=== PATIENT | male | born 1980 | race Caucasian/White ===

== ENCOUNTER 2018-12-31 03:59 | Emergency (ER) | payer SELFPAY ==
[2018-12-31 04:00] VITALS: BP 133/86; PULSE 82; RESP 16; TEMP 36.5; O2SAT 95; BMI 36.8
--- NOTE | 2018-12-31 04:49 | ED.VISSUMM ---
- ER Visit Summary Date of Service: 12/31/18 Chief Complaint: Altered level of consciousness History of Present Illness: The patient is a 38 M who is brought in by EMS. EMS states that they were called by a neighbor in an apartment complex and stated that the patient seemed confused. When I arrived the patient was in a hallway-like area and would speak minimally. They noted that he would stumble and appeared intoxicated. They got him back inside his apartment there was a lot of empty beer cans. The patient appeared to intoxicated to leave by himself. No reports of trauma. Physical Examination: Afebrile vital signs are stable Gen: Well-nourished well-developed Head: Normocephalic atraumatic Eyes: Perrl EOMI ENT: TMs clear no rhinorrhea moist mucous membranes mild of alcohol Neck: Supple no lymphadenopathy no JVD nontender CVS: Regular rate rhythm no murmurs normal S1-S2 Respiratory: No distress clear to auscultation bilaterally chest nontender Abdomen: Soft nontender nondistended normal bowel sounds no masses Back: Nontender Extremity: Nontender no edema Skin: Normal color no rash Neuro: Patient appears stuporous and intoxicated patient moves all 4 extremities. Patient is able to get to the bathroom though patient stumbles while walking. Patient states that he is to foot 3 inches tall. Psych: Normal affect normal mood Test Results: Alcohol level is 330. Emergency Department Course and Treatment: Given the high alcohol level and the apparent state of intoxication do not feel the patient is safe to allow to go home. Will have him sleep. Metabolize his alcohol and will reassess. Impression: 1. Acute alcohol intoxication This note was generated with [employer] dictation software. It may contain incorrect words, spelling, and punctuation that were not noted in review of the chart prior to signing ED Disposition - Plan for ED Patient: Referrals: Care Physician,No Primary [Primary Care Provider] -
--- NOTE | 2018-12-31 04:53 | ED.DCSUM_ITS ---
- ER Visit Summary Date of Service: 12/31/18 Chief Complaint: Altered level of consciousness History of Present Illness: The patient is a 38 M who is brought in by EMS. EMS states that they were called by a neighbor in an apartment complex and stated that the patient seemed confused. When I arrived the patient was in a hallway- like area and would speak minimally. They noted that he would stumble and appeared intoxicated. They got him back inside his apartment there was a lot of empty beer cans. The patient appeared to intoxicated to leave by himself. No reports of trauma. Physical Examination: Afebrile vital signs are stable Gen: Well-nourished well-developed Head: Normocephalic atraumatic Eyes: Perrl EOMI ENT: TMs clear no rhinorrhea moist mucous membranes mild of alcohol Neck: Supple no lymphadenopathy no JVD nontender CVS: Regular rate rhythm no murmurs normal S1-S2 Respiratory: No distress clear to auscultation bilaterally chest nontender Abdomen: Soft nontender nondistended normal bowel sounds no masses Back: Nontender Extremity: Nontender no edema Skin: Normal color no rash Neuro: Patient appears stuporous and intoxicated patient moves all 4 extremities. Patient is able to get to the bathroom though patient stumbles while walking. Patient states that he is to foot 3 inches tall. Psych: Normal affect normal mood Test Results: Alcohol level is 330. Emergency Department Course and Treatment: Given the high alcohol level and the apparent state of intoxication do not feel the patient is safe to allow to go home. Will have him sleep. Metabolize his alcohol and will reassess. Impression: 1. Acute alcohol intoxication This note was generated with [employer] dictation software. It may contain incorrect words, spelling, and punctuation that were not noted in review of the chart prior to signing ED Disposition - Plan for ED Patient: Referrals: Care Physician,No Primary [Primary Care Provider] -
--- NOTE | 2018-12-31 05:04 | ED.RN ---
RECEIVED CALL FROM LAB. ETOH LEVEL OF 330. DR. ECHOLS NOTIFIED.
[2018-12-31 06:45] VITALS: RESP 18
[2018-12-31 08:41] VITALS: BP 136/72; PULSE 69; RESP 17; O2SAT 96
[2018-12-31 10:00] VITALS: BP 124/62; PULSE 62; RESP 15; O2SAT 99
--- NOTE | 2018-12-31 11:02 | ED.RN ---
PT ATTEMPTED TO FIND A RIDE HOME. UNSUCCESSFUL. PT IS A+OX3, AMBULATES WITHOUT DIFFICULTY. LUNCH ORDERED FOR PT.
[2018-12-31 13:09] VITALS: BP 162/74; PULSE 84; RESP 16; O2SAT 99
--- NOTE | 2018-12-31 13:11 | ED.DEP ---
ED Disposition - Plan for ED Patient: Instructions: ED Alcohol Intoxication Referrals: Care Physician,No Primary [Primary Care Provider] - Reinaldo Sesay MD [STAFF PHYSICIAN] - As Needed
--- NOTE | 2018-12-31 13:13 | ED.DCSUM_ITS ---
- ER Visit Summary Date of Service: 12/31/18 Chief Complaint: [Addendum to initial dictation by Dr. Hector Nye] History of Present Illness: The patient is a 38 M [presented with acute alcohol intoxication. Care of patient turned over to me awaiting normalization of his alcohol before discharge to home.] Physical Examination: [HEENT-PERRLA, EOMI. Cranial nerves II through XII grossly intact. TMs clear. Mucous membranes moist. No adenopathy. Cardiovascular-regular rate and rhythm without murmur or ectopy Lungs-clear to auscultation, chest wall stable without crepitus or subcu emphysema Abdomen-normoactive bowel sounds, soft, nontender, no rebound or rigidity, no peritoneal signs. Extremities-intact ?4, normal range of motion, normal pulses, atraumatic] Test Results: [] Emergency Department Course and Treatment: [Patient has been ambulatory in the department and is appropriate at this time. Patient without any complaints] Treatment Plan: [] Disposition: [Discharged home stable condition] Impression: [Alcohol intoxication] This note was generated with [employer] dictation software. It may contain incorrect words, spelling, and punctuation that were not noted in review of the chart prior to signing ED Disposition - Plan for ED Patient: Instructions: ED Alcohol Intoxication Referrals: Reinaldo Sesay MD [STAFF PHYSICIAN] - As Needed Care Physician,No Primary [Primary Care Provider] -
== END 2018-12-31 13:17 | disposition home or self-care (01) ==
LOC: ED 04:40
PROVIDERS: Emergency Provider Emergency Medicine
DX: F10.129 Alcohol abuse with intoxication, unspecified (principal); Y90.8 Blood alcohol level of 240 mg/100 ml or more; J45.909 Unspecified asthma, uncomplicated; Z72.0 Tobacco use
CPT/HCPCS: 80320; 99285; G0480

== ENCOUNTER 2023-05-06 11:06 | Outpatient (CLI) | payer BC, SELFPAY ==
[2023-05-06 12:27] LABS: Absolute Lymphocyte Count 1.94 X10^3/uL (0.83-4.51); Absolute Neutrophil Count 2.9 X10^3/uL (2.0-7.7); Basophil# 0.03 X10^3/uL; Basophil% 0.5 % (0-1); Eosinophil# 0.13 X10^3/uL; Eosinophils% 2.4 % (0-5); Hematocrit 43.3 % (40-54); Hemoglobin 14.1 g/dL (13.0-16.5); Lymphocyte # 1.94 X10^3/ul (0.83-4.51); Lymphocyte % 35.3 % (19-41); Mean Corp Hgb Conc 32.6 g/dL (32-36); Mean Corpuscular Hgb 29.7 pg (27.0-32.0); Mean Corpuscular Volume 91.2 fL (80-94); Mean Platelet Vol. 8.9 fl (6.2-12.0); Monocyte% 9.1 % (0-10); NRBC Flagged by Analyzer 0 % (0-5); Neutrophil # 2.89 X10^3/uL (2.7-7.7); Neutrophil % 52.7 % (47-70); Platelet Count 212 K/mm3 (150-450); RBC Distribution Width CV 12.3 % (11.6-14.6); Red Blood Count 4.75 M/mm3 (4.6-6.2); White Blood Count 5.5 K/mm3 (4.4-11.0)
[2023-05-06 13:51] LABS: ALB/GLOB Ratio 1.1 RATIO (0.9-2.4); AST(SGOT) 40 U/L (15-37); Alanine Aminotransfer ALT/SGPT 51 U/L (16-61); Albumin, Serum 3.6 g/dL (3.2-5.0); Alkaline Phosphatase 45 U/L (45-117); Anion Gap 8 (5-15); BUN 28 mg/dL (7-18); BUN/Creat Ratio 34.9 RATIO (10-20); Calcium,Total 9.5 mg/dL (8.5-10.1); Chloride 107 mmol/L (98-107); Cholesterol 197 mg/dL (200); EST Glomerular Filtration Rate 112 mL/min (>60); Est Glom Filt Rate - Afr Amer 135 mL/min (>60); Globulin 3.2 g/dL (2.2-4.2); Glucose 91 mg/dL (74-106); High Density Lipoprotein 33 mg/dL; Potassium 4.2 mmol/L (3.5-5.1); Protein, Total 6.8 g/dL (6.4-8.2); Sodium Level 140 mmol/L (136-145); Triglycerides 130 mg/dL
[2023-05-06 13:52] LABS: Thyroid Stim Hormone (TSH) 4.26 uIU/mL (0.358-3.74); Very Low Density Lipoprotein 26 mg/dL (5-40)
== END 2023-05-06 23:59 | disposition home or self-care (01) ==
LOC: MFPLAB 11:08
PROVIDERS: PCP Family Medicine; Visit Provider Family Medicine
DX: R03.0 Elevated blood-pressure reading, without diagnosis of hypertension (principal)
CPT/HCPCS: 36415; 80053; 80061; 84443; 85025

== ENCOUNTER → 2024-02-23 | Outpatient (CLI) | payer BC, SELFPAY ==
[2024-02-23 10:42] LABS: Absolute Neutrophil Count 2.9 X10^3/uL (2.0-7.7); Basophil# 0.02 X10^3/uL; Basophil% 0.4 % (0-1); Eosinophil# 0.08 X10^3/uL; Eosinophils% 1.4 % (0-5); Hematocrit 40.8 % (40-54); Hemoglobin 13.7 g/dL (13.0-16.5); Lymphocyte % 35.9 % (19-41); Mean Corp Hgb Conc 33.6 g/dL (32-36); Mean Corpuscular Hgb 29.2 pg (27.0-32.0); Mean Platelet Vol. 9.2 fl (6.2-12.0); Monocyte# 0.54 X10^3/uL; Monocyte% 9.7 % (0-10); NRBC Flagged by Analyzer 0 % (0-5); Neutrophil # 2.91 X10^3/uL (2.7-7.7); Neutrophil % 52.2 % (47-70); Platelet Count 247 K/mm3 (150-450); RBC Distribution Width SD 38.3 fl (35.1-43.9); Red Blood Count 4.69 M/mm3 (4.6-6.2); White Blood Count 5.6 K/mm3 (4.4-11.0)
[2024-02-23 11:24] LABS: ALB/GLOB Ratio 1.2 RATIO (0.9-2.4); AST(SGOT) 45 U/L (15-37); Alanine Aminotransfer ALT/SGPT 51 U/L (16-61); Albumin, Serum 3.8 g/dL (3.2-5.0); Alkaline Phosphatase 51 U/L (45-117); Anion Gap 5 (5-15); BUN 22 mg/dL (7-18); BUN/Creat Ratio 22.3 RATIO (10-20); Calcium,Total 9.2 mg/dL (8.5-10.1); Chloride 106 mmol/L (98-107); Cholesterol 184 mg/dL (200); Creatinine, Serum 0.99 mg/dL (0.70-1.30); EST Glomerular Filtration Rate 88 mL/min (>60); Est Glom Filt Rate - Afr Amer 106 mL/min (>60); Globulin 3.3 g/dL (2.2-4.2); Glucose 78 mg/dL (74-106); High Density Lipoprotein 38 mg/dL; Potassium 3.9 mmol/L (3.5-5.1); Protein, Total 7.1 g/dL (6.4-8.2); Sodium Level 138 mmol/L (136-145); Triglycerides 64 mg/dL; Very Low Density Lipoprotein 13 mg/dL (5-40)
== END | disposition home or self-care (01) ==
LOC: MFPLAB 09:18
PROVIDERS: PCP Family Medicine; Visit Provider Family Medicine
DX: I10 Essential (primary) hypertension (principal); R53.83 Other fatigue; Z13.1 Encounter for screening for diabetes mellitus
CPT/HCPCS: 36415; 80053; 80061; 84403; 85025